=== PATIENT | male | born 1980 ===

== ENCOUNTER 2017-01-21 11:23 | Inpatient (IN) | payer MEDICAID ==
--- NOTE | 2017-01-21 11:29 | C.PDOC ---
History Of Present Illness 37 year old male with a Hx of bipolar disorder and depression who presents to the ER as a transfer for psychiatric admission. Patient states he is hearing voices telling him to commit suicide; however, denies any intent or plan. No physical complaints at this time. Time Seen by Provider: 01/21/17 11:24 History Per: Other (Tranferring facility) History/Exam Limitations: no limitations Onset/Duration Of Symptoms: Days Current Symptoms Are (Timing): Still Present Suicide/Self Injury Attempted (Context): None Pain Scale Rating Of: 0 Associated Symptoms: Depression, Suicidal Thoughts. denies: Suicidal Plan Involuntary Hold By: None Recent travel outside of the [place]: No Past Medical History Reviewed: Historical Data, Nursing Documentation, Vital Signs Vital Signs: Last Vital Signs Temp 98.3 F 01/21/17 11:24 Pulse 82 01/21/17 11:24 Resp 20 01/21/17 11:24 BP 117/83 01/21/17 11:24 Pulse Ox 97 01/21/17 11:33 - Medical History PMH: Bipolar Disorder, Depression Surgical History: No Surg Hx Family History: States: Unknown Family Hx Review Of Systems Constitutional: Negative for: Fever, Chills Gastrointestinal: Negative for: Nausea, Vomiting, Diarrhea Neurological: Negative for: Headache, Dizziness Physical Exam - Physical Exam Appears: Non-toxic, No Acute Distress Skin: Normal Color, Warm, Dry Head: Atraumatic, Normacephalic Oral Mucosa: Moist Teeth: Other (Missing teeth) Chest: Symmetrical, No Tenderness Cardiovascular: Rhythm Regular, No Murmur Respiratory: Normal Breath Sounds, No Rales, No Rhonchi, No Wheezing Gastrointestinal/Abdominal: Soft, No Tenderness Neurological/Psych: Oriented x3, Normal Speech, Normal Cognition ED Course And Treatment O2 Sat by Pulse Oximetry: 97 (Room air) Pulse Ox Interpretation: Normal Disposition - Disposition Disposition: HOSPITALIZED Disposition Time: 11:28 Condition: GUARDED - Clinical Impression Clinical Impression: Suicidal ideations - Scribe Statement The provider has reviewed the documentation as recorded by the Scribdary Gale All medical record entries made by the Scribe were at my direction and personally dictated by me. I have reviewed the chart and agree that the record accurately reflects my personal performance of the history, physical exam, medical decision making, and the department course for this patient. I have also personally directed, reviewed, and agree with the discharge instructions and disposition. Decision To Admit - Pt Status Changed To: Hospital Disposition Of: Inpatient - Admit Certification Admit to Inpatient:: After my assessment, the patient will require hospitalization for at least two midnights. This is because of the severity of symptoms shown, intensity of services needed, and/or the medical risk in this patient being treated as an outpatient. - InPatient: Physician Admission Certification: I certify that this patient requires 2 or more midnights of care for the following reason:: suicidal ideations - . Bed Request Type: Psychiatry Patient Diagnosis: Suicidal ideations
--- NOTE | 2017-01-21 15:40 | PCM.BM ---
<Zarina Noel - Last Filed: 01/21/17 15:37> Treatment Plan Problems - Problems identified on initial assessmt Depression Date Initiated: 01/21/17 Time Initiated: 15:37 Assessment reference: NA Status: Active Suicidal Ideation Date Initiated: 01/21/17 Time Initiated: 15:38 Assessment reference: NA Status: Active Treatment assets and liabiliti Patient Assests: adapts well, cooperative, ADL independent, physically healthy, cognitively intact Patient Liabilities: live alone (Homeless), poor support system - Milieu Protocol Maintain good personal hygiene: daily Encourage regular showers, daily Remind patient to perform daily oral care, other Assist patient to perform ADL's (Self) Conduct patient checks and document Observation sheet: Q15 minutes (Observation) Maintain personal safety: every shift Educate patient to report safety concerns to staff, every shift Monitor environment for contraband/sharps Medication safety: Monitor for expected outcome, potential side effects: every shift, Assess barriers to learning: every shift, Assess readiness for medication education: every shift <Sofía Ricardo - Last Filed: 01/23/17 13:37> Family Contact Family involvement: Famliy/SO not involved (Pt's family lives in [facility]) Discharge/Continuing Care - Education Needs Education Needs: Patient Medication, Patient Coping Skills, Patient Placement options - Discharge Discharge Criteria: Tolerates medication w/o severe side effects, Free of Suicidal thoughts, Reduction of target symptoms Discharge to:: [facility] - Treatment Team Participation Discussed with Family/SO: No Was Patient/Family/SO present at Treatment Team Meeting: Yes <Keisha Driscoll - Last Filed: 01/23/17 14:34> - Diagnosis (1) Psychosis Status: Acute Interventions: 01/23/17 14:33 * Assess/adjust medications daily and /or as needed * Discuss risks, benefits, sided effects and alternatives of medications * See patient on an individual basis 7x/week to assess level of delusional thoughts/ideation * (2) Suicidal ideations Status: Acute Interventions: 01/23/17 14:34 * Assess/adjust medications daily and /or as needed * Discuss risks, benefits, side effects and alternatives of medications * See patient on an individual basis 7x/week to assess level of suicidal thoughts *
--- NOTE | 2017-01-22 23:07 | PCM.PSYCH ---
Initial Psychiatric Evaluation - Initial Psychiatric Evaluation Type of Admission: Voluntary Legal Status: Capacity Chief Complaint (in patient's own words): "I'm homeless" History of Present Illness and Precipitating Events: This is a 37 year old [place] unemployed, homeless male with pphx of Schizophrenia, Bipolar disorder was transferred from [facility] for the treatment of depression, AH and SI. Pt appeared disorganized and stated that he likes to stay out of the hospital. He stated that he is homeless, unemployed. He reported that he is hearing voices. per chart review he is hearing voices, while pt denied. However, he appeared internally preoccupied and responding to stimuli. He stated that he had suicidal ideation, but no plan or intent, because he is a Judaism and he does not want to end his life. He denied HI, intent or plan. He denied paranoid delusions. He stated that he has fluctuation in his mood. He is feeling happy at one movement and other moment he is feeling sad. His level of energy also fluctuate. He reported that his sleep and appetite is fine. He stated that he was on Risperdal and Haldol with Cogentin in past. He reported that he was not compliant with his treatment Current Medications: Active Medications Generic Name Dose Route Start Last Admin Trade Name Freq PRN Reason Stop Dose Admin Benztropine Mesylate 1 mg 01/21/17 22:00 01/22/17 21:27 Cogentin PO 1 mg HS FRANCISCO Administration Hydroxyzine HCl 50 mg 01/21/17 15:13 Atarax PO QID PRN anxiety, insomnia Ibuprofen 600 mg 01/21/17 15:11 01/22/17 21:28 Motrin Tab PO 600 mg Q6H PRN Administration Pain, Mild (1-3) Nicotine 1 patch 01/21/17 16:26 01/22/17 11:25 Nicoderm Cq TD 1 patch DAILY FRANCISCO Administration Risperidone 2 mg 01/21/17 15:15 01/22/17 11:25 Risperdal Tab PO 2 mg DAILY FRANCISCO Administration Trazodone HCl 50 mg 01/21/17 15:14 01/22/17 21:27 Desyrel PO 50 mg HS PRN Administration Insomnia Past Psychiatric History - Past Psychiatric History Prior Psychiatric Treatment: multiple psych admission At [facility]: [facility] Duration: many days to weeks Nature of Treatment: meds management Explanation of prior treatment: non compliance issues History of Abuse: denied History of ETOH/Drug Use: ? not cleared as at one moment he stated that he was smoking Cannabis and later he denied History of Family Illness: mother and aunt had depression Pertinent Medical Hx (Current Medical&Sleep Prob, Allergies): Allergies Allergy/AdvReac Type Severity Reaction Status Date / Time No Known Allergies Allergy Verified 01/21/17 11:30 Benztropine [Benztropine Mesylate] 1 mg PO HS 01/21/17 Clonazepam [Klonopin] 1 mg PO BID 01/21/17 Clonazepam [Klonopin] 1 mg PO HS PRN 01/21/17 Ibuprofen/Diphenhydramine Cit [Motrin Pm 38 mg-200 mg] 1 tab PO HS 01/21/17 RX: Haloperidol [Haldol] 5 mg PO HS 01/21/17 RX: Risperidone 2 mg PO BID 01/21/17 RX: Risperidone 3 mg PO HS 01/21/17 hydrOXYzine Pamoate [Vistaril] 50 mg PO Q6 PRN 01/21/17 Review of Systems - Review of Systems All systems: reviewed and no additional remarkable complaints except (PSYCH) Mental Status Examination - Personal Presentation Personal Presentation: Looks younger than stated age, Dressed appropriate to season - Affect Affect: Blunted - Motor Activity Motor Activity: Calm, Psychomotor Retardation - Reliability in Providing Information Reliability in Providing Information: Poor, due to alteration in thoughts - Speech Speech: Disorganized - Mood Mood: Depressed - Formal Thought Process Formal Thought Process: Hallucinations Additional comments: Appeared internally preoccupied and responding to stimuli - Hallucinations/Delusions Hallucinations: Auditory - Obsessions/Compulsions Obsessions: No Compulsions: No - Cognitive Functions Orientation: Person, Place, Situation Sensorium: Alert Attention/Concentration: Attentive Abstract Thinking: Logan Estimate of Intelligence: Below average Judgement: Imparied, as evidence by: Poor judgement, Imparied, as evidence by: Lack of insight into illness Memory: Recent intact, as evidence by: Ability to recall events of the day - Risk Additional comments: denied SI, HI, intent or plan - Strength & Assets Inventory Strength & Assets Inventory: Spiritual affiliations, Cooperative - Limitations Limitations: Living alone (homeless, unemployed) DSM 5 DX - DSM 5 DSM 5 Diagnosis: Schizophrenia vS Schizoaffective d/o - Recommended/Plan of Treatment Treatment Recommendations and Plan of Treatment: - CBT - Psychoeducation - Group and supportive therapy -Start Risperdal for psychosis with cogentin - Medication including alternative choices, benefits and s/e were discussed with the pt and pt verbalized understanding and in agreement to start the treatment. Projected ELOS: 10 days Prognosis: fair with meds
[2017-01-23 09:43] VITALS: RESP 16; TEMP 98.6; O2SAT 99
--- NOTE | 2017-01-23 14:34 | PCM.PYCHPN ---
Psychiatric Progress Note - Psychiatric Progress Note Patient seen today, length of contact: 19 min Patient Chief Complaint: "I'm fine, I can leave" Problems Identified/Issues Discussed: The pt is seen with the team and alone. He refused to talk when there were team members but was Ok with the journalists and other writers and two trainees. He was quite paranoid, somewhat thought disordered and very guarded, evasive. He denied all high risk sxs, ie no SI, HI, AVH or del. He put in a 48-hr notice already, due tomorrow PM Windows Administrator tried to discuss risks of leaving to no avail, as he has very poor insight Medication Change: No Medical Record Reviewed: Yes Mental Status Examination - Cognitive Function Orientation: Person, Place, Situation, Time Memory: Intact Attention: WNL Concentration: Poor Association: WNL Fund of Knowledge: Poor - Mood Mood: Depressed - Affect Affect: Blunted - Speech Speech: Appropriate - Formal Thought Process Formal Thought Process: Hallucinations - Suicidal Ideation Suicidal Ideation: No - Homicidal Ideation Homicidal Ideation: No Goal/Treatment Plan - Goal/Treatment Plan Need for Continued Stay: Discharge may exacerbated symptoms, Severe functional impairment Progress Toward Problem(s) and Goals/Treatment Plan: Continue meds Continue increasing insight After care by SW Support
[2017-01-23 15:25] VITALS: BP 115/79; PULSE 98
--- NOTE | 2017-01-24 09:33 | PCM.PYCHDC ---
Mental Status Examination - Mental Status Examination Orientation: Person, Place, Situation, Time Memory: Intact Mood: Anxious Affect: Constricted (odd) Speech: Appropriate Attention: WNL Concentration: WNL Association: WNL Fund of Knowledge: WNL Formal Thought Process: No Impairment Suicidal Ideation: No Current Homicidal Ideation?: No Discharge Summary - Discharge Note Reason for Hospitalization: Suicidal Ideation Psychiatric History (includes Medical, Family, Personal Hx): meds management Consultations:: List each consultation separately and include: 1. Reason for request. 2. Findings. 3. Follow-up Summary of Hospital Course include:: 1. Description of specific treatment plan utilized for patients during their course of treatmen. 2. Summarize the time- course for resolution of acute symptoms and/or regressed behaviors. 3. Describe issues identified and worked on during hospitalization. 4. Describe medication utilized. 5. Describe medical problems identified and treated. 6. Reassessment of suicide risk Summary of Hospital Course: The pt was admitted and started on treatment with psychotherapy, support, psychoeducation and medications. Pt reports sleeping well last night. Pt denies SI, AVH, and paranoid delusions. Pt denies feeling " is better than life." Pt plans to go to school at [employer] upon discharge and finish remaining credits. When asked what he will do for a living, pt says "God will help, I'll figure it out." Pt requested medications for depression upon discharge. All risks of leaving discussed with patient including: relapse, overdose, , and other risks. Pt understood risks but did not change his mind. The pt attended groups and activities, as well as milieu therapy. All the risks and benefits of medications are discussed and the patient understood and agreed. The pt improved with the treatments provided. However, he is not in remission yet but he put in a 48-hr notice and is leaving against our advice. After care discussed with the patient. Outpt care recommended, he agreed, meds rx'ed. - Final Diagnosis (DSM 5) Condition upon Discharge: GOOD DSM 5: Psychosis unspecified r/o schizophrenia vs. schizoaffective d/o Depressive d/o - unspecified Disposition: HOME/ ROUTINE Follow-up Treatment Plan: Continue below medications after discharge. Risks discussed and he understood Follow after care plan as discussed. Use relapse prevention skills Return to ER or call 911 if suicidal, homicidal or symptoms relapse. Stay away from stress, alcohol and drugs. See primary doctor once a year. Prescriptions/Medication Reconciliation: Benztropine [Cogentin] 1 mg PO HS #30 tab FLUoxetine [Prozac] 20 mg PO DAILY #30 cap risperiDONE [RisperDAL Tab] 2 mg PO DAILY #30 tab traZODone [Desyrel] 50 mg PO HS PRN #30 tab PRN Reason: Insomnia
== END 2017-01-24 12:35 | disposition home or self-care (01) | DRG 430 ==
LOC: C.ER 11:23 → C.5E 11:46
PROVIDERS: ADMIT Psychiatry & Neurology Psychiatry; ATTEND Psychiatry & Neurology Psychiatry
DX: F20.9 Schizophrenia, unspecified (principal); Z59.0 Homelessness; R45.851 Suicidal ideations; F31.9 Bipolar disorder, unspecified; Z81.8 Family history of other mental and behavioral disorders